=== PATIENT | female | born 1955 | race Caucasian/White ===

== ENCOUNTER 2024-06-20 10:22 | Emergency (ER) | payer MEDICARE, SELFPAY ==
[2024-06-20 10:35] VITALS: BP 132/70; PULSE 81; RESP 16; TEMP 36.1; O2SAT 99
[2024-06-20 10:42] VITALS: BP 132/70; PULSE 81; RESP 16; TEMP 36.1; O2SAT 99
--- NOTE | 2024-06-20 10:53 | ED.URI ---
HPI - URI/Sore Throat General Chief Complaint: Upper Respiratory Infection Stated Complaint: strep symptoms Time Seen by Provider: 06/20/24 10:53 Source: patient Mode of arrival: ambulatory Limitations: no limitations History of Present Illness HPI Narrative: 69-year-old female presents with complaint of nasal congestion, postnasal drainage, cough for 2 days. Afebrile. Patient did home COVID test but was . Would like a COVID and strep test prior to seen her grandson. No chest pain or shortness of breath. Takes Claritin daily. All systems reviewed and negative except as noted above. Related Data Home Medications Medication Instructions Recorded Confirmed Boswellia tanner extract-turmeric cap PO 06/20/24 root extract 500 mg capsule alpha lipoic acid 50 mg tablet 50 mg PO DAILY 06/20/24 06/20/24 aspirin 81 mg chewable tablet 81 mg PO DAILY 06/20/24 06/20/24 calcium citrate 200 mg (950 mg) 200 mg PO DAILY 06/20/24 06/20/24 tablet cholecalciferol (vitamin D3) 1,250 1,250 mcg PO DIRECTED 06/20/24 06/20/24 mcg (50,000 unit) tablet gabapentin 300 mg capsule mg 06/20/24 glucosamine sulfate 1,000 mg tablet 1,000 mg PO BID 06/20/24 06/20/24 loratadine 10 mg tablet 10 mg PO DAILY 06/20/24 06/20/24 magnesium 500 mg tablet 15 mg PO BID 06/20/24 06/20/24 metformin 500 mg tablet,extended mg PO 06/20/24 release 24 hr multivit with minerals-iron 18 tablet PO 06/20/24 mg-folic ac 400 mcg-vit K 25 mcg tablet (Adults Multivitamin) naphazoline 0.025 %-pheniramine 1 drp EACH EYE QID 06/20/24 06/20/24 0.3 % eye drops (Naphcon-A) omega 6-luo-mgm-fish oil 60 mg-90 1 cap PO DAILY 06/20/24 06/20/24 mg-500 mg capsule (Fish Oil) policosanol 10 mg tablet mg PO 06/20/24 psyllium 1 packet PO TID 06/20/24 06/20/24 simvastatin 10 mg tablet mg 06/20/24 ubiquinol 100 mg-pyrroloquinoline cap PO 06/20/24 quinone (coenzyme PQQ) 10 mg capsule zoledronic acid 5 mg/100 mL in 5 mg IV ONCE 06/20/24 06/20/24 mannitol 5 %-water intravenous piggybck (Reclast) Allergies Allergy/AdvReac Type Severity Reaction Status Date / Time Penicillins Allergy Unknown Verified 06/20/24 10:36 Review of Systems Review of Systems: CONSTITUTIONAL: Denies fever, chills, or sweats. reports fatigue. EYES: Denies visual changes, redness, or discharge. ENT: Reports rhinorrhea, congestion, sore throat. Denies otalgia. CARDIOVASCULAR: Denies chest pain, palpitations, or edema. RESPIRATORY: Reports cough. Denies dyspnea. GASTROINTESTINAL: Denies abdominal pain, nausea, vomiting, or diarrhea. GENITOURINARY: Denies dysuria or hematuria. SKIN: Denies rash or itching. MUSCULOSKELETAL: Denies back pain, joint pain, or myalgia. NEUROLOGIC: Denies headache, numbness, or weakness. PSYCHIATRIC: Denies anxiety or depression. All other systems reviewed are negative, except as documented in HPI. PMFSH Comments At time of signature, agree with nursing past medical, surgical, social and family history. There is no relevant family history pertinent to the presenting complaint. Exam Narrative: GENERAL: This is a well-nourished, well-developed patient, in no apparent distress. HEAD: normocephalic, atraumatic. EYES: PERRL. Sclera clear/white. Vision is grossly intact. EARS: External ears normal, auditory canals clear and without drainage, TMs normal without perforation. Hearing grossly intact. NOSE: External nose normal with moderate congestion, erythema to bilateral nares, clear nasal drainage THROAT: Mucous membranes moist, clear postnasal drainage with mild erythema NECK: Neck supple, non-tender without lymphadenopathy, masses or thyromegaly. CARDIOVASCULAR: Regular rate and rhythm without murmurs, gallops, or rubs. RESPIRATORY: Clear to auscultation. Breath sounds equal bilaterally. No wheezes, rales, or rhonchi. SKIN: warm, Dry, intact with no suspicious lesions or rash, good texture and turgor. NEURO: awake, alert, and
[2024-06-20 11:00] LABS: EDSTREPNEGPOS1 Negative
== END 2024-06-20 11:19 | disposition home or self-care (01) ==
PROVIDERS: Emergency Provider Nurse Practitioner Family; PCP Family Medicine
DX: J06.9 Acute upper respiratory infection, unspecified (principal); R05.9 Cough, unspecified; Z20.822 Contact with and (suspected) exposure to COVID-19; Z79.82 Long term (current) use of aspirin
CPT/HCPCS: 87081; 87426; 87880; 99213; G0463